=== PATIENT | male | born 1990 | race Asian ===

== ENCOUNTER 2022-10-09 01:47 | Emergency (ER) | payer OTHER ==
[2022-10-09] MEDS ORDERED: DOXYCYCLINE 100 MG TABLET PO STA (03:22)
[2022-10-09] MEDS ORDERED: HYDROcod/ACET 5/325 Prepack 4 PO STA (03:22)
--- NOTE | 2022-10-09 03:25 | ED Physician Documentation ---
PD HPI SKIN - Stated complaint Stated Complaint: COCCYX PAIN - Chief complaint Chief Complaint: Wound - History obtained from History obtained from: Patient - Additional information Additional information: The patient comes to the emergency department with chief complaint of right buttock pain and swelling progressively over the last several days and Also, right small finger pain after falling and landing on his right hand and catching his right small finger. Patient states both of these events happened several days ago. The patient states that he has had some swelling about the PIP joint of mentioned finger and that has been painful. However, he has been able to move it. He states the thing that is bothering him the most is the increasing area of pain and swelling on his buttock and that it is interfering with his ability to even move around at work. It also hurts to sit down, he states. Patient denies fevers or chills. No drainage from the area. He has never had an abscess before. 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 - Past Surgical History Past Surgical History: No - Present Medications Home Medications: Ambulatory Orders Medication Instructions Recorded Confirmed Bictegrav/Emtricit/Tenofov Ala 1 tab PO DAILY 10/09/22 10/09/22 [Biktarvy 50-200-25 mg Tablet] Doxycycline [Vibramycin] 100 mg PO BID #14 tablet 10/09/22 HYDROcod/ACETAM 5/325 [[place]avend[place] 5/325] 1 - 2 tablet PO Q6H PRN #14 tablet 10/09/22 Isoniazid 300 mg PO DAILY 10/09/22 10/09/22 Pyridoxine HCl (Vitamin B6) 50 mg PO DAILY 10/09/22 10/09/22 [Vitamin B-6] - Allergies Allergies/Adverse Reactions: Allergies Allergy/AdvReac Type Severity Reaction Status Date / Time No Known Drug Allergies Allergy Verified 10/09/22 01:58 - Social History Does the pt smoke?: No Smoking Status: Never smoker Does the pt drink ETOH?: Yes ETOH Use: Wine, Liquor Does the pt have substance abuse?: No - Immunizations Immunizations are current?: Yes - POLST Patient has POLST: No PD ED PE NORMAL - Vitals Vital signs reviewed: Yes - General General: Alert and oriented X 3, No acute distress, Well developed/nourished - HEENT HEENT: Atraumatic, PERRL, EOMI, Moist mucous membranes - Neck Neck: Supple, no meningeal sign - Respiratory Respiratory: No respiratory distress - Derm Derm: Warm and dry, Other (5 cm or erythema with 4 cm centrally located area of induration with scab overlying. No drainage. No fluctuance. Tender to palpation.) - Extremities Extremities: No deformity, Other (Edema and notable tenderness about the PIP joint of the right hand fifth digit. Mildly limited range of motion with regard to flexion, secondary to pain.) - Neuro Neuro: Alert and oriented X 3 - Psych Psych: Normal mood, Normal affect Results - Vitals Vitals: Vital Signs - 24 hr 10/09/22 01:52 Temperature 37.1 C Heart Rate 95 Respiratory 16 Rate Blood Pressure 146/97 H O2 Saturation 100 Oxygen O2 Source Room air - Rads (name of study) Right hand x-ray series Relevant Findings:: Final report received, See rad report (Negative) Procedures - Abscess I&D (location) R buttock Preparation: Betadine, Lidocaine 1% Incision: Incised with scalpel, Purulent drainage, Irrigated, Packed Other: Pt tolerated well, Dressing applied, Antibiotic prescribed PD Medical Decision Making - ED course Complexity details: considered differential, d/w patient ED course: X-ray was performed of the patient's right hand and no fracture was found. I&D was performed as above with a modest amount of purulent drainage. The patient was started on doxycycline based on a recent antibiotic susceptibility patterns for Staph aureus/MRSA. He was given a prepack of Vicodin as he had driven himself., And was instructed to wait to take this until he got home. At his request, I have electronically transmitted his prescriptions to the [facility] pharmacy in [place]. We have discussed the need for follow-up in 2 to 4 days for packing removal. We have also discussed wound care at home and the usual indications for return. Departure - Departure Disposition: 01 Home, Self Care Clinical Impression: Abscess Condition: Stable Instructions: ED Abscess IandD Prescriptions: HYDROcod/ACETAM 5/325 [Cavendish 5/325] 1 - 2 tablet PO Q6H PRN #14 tablet PRN Reason: Pain Doxycycline [Vibramycin] 100 mg PO BID #14 tablet Comments: You have an abscess with cellulitis on your right buttock which has been incised and drained today. The abscess cavity has been packed with gauze packing, which should be left in place for at least the next 2 days. In 2 to 4 days, you should have the packing removed and at that point in time, the abscess may be allowed to heal on its own without further packing placement. You been started on antibiotics tonight, and will need to order picker/assembler your prescription for the remaining antibiotics. Given that it is still fairly early in the morning, you may take your next dose of antibiotics sometime in the midmorning and then you can get on the twice daily schedule with the following dose in the late afternoo n to evening. The prescription for the antibiotic, as well as a prescription for some pain medication has been electronically transmitted [place] [facility] [place]. As far as the incision site, as long as the gauze packing is in place, the wound should be kept dry as far as possible. If you do happen accidentally get the dressing wet, you should change the gauze. Once the packing is removed and the wound scabs over, you may leave it open to air if you wish. Otherwise, you may place a Band-Aid or small dressing over the area. Forms: Activity restrictions
[2022-10-09 03:44] VITALS: BP 138/66
--- NOTE | 2022-10-09 08:36 | XRAY Report ---
PROCEDURE: Hand 3 View RT INDICATIONS: fall/5th digit injury TECHNIQUE: 3 views of the hand(s) acquired. COMPARISON: None. FINDINGS: Bones: No fractures or dislocations. No suspicious bony lesions. Soft tissues: No suspicious soft tissue calcifications. IMPRESSION: No acute bony abnormality. If symptoms persist, follow-up radiographs and/or CT or MRI may be helpful for further evaluation. Findings are concordant with preliminary interpretation provided by [facility]. Reviewed by: Kiran Cuello MD on 10/09/2022 8:35 AM PDT Approved by: Kiran Cuello MD on 10/09/2022 8:35 AM PDT Station ID: [id number]
== END 2022-10-09 03:46 | disposition home or self-care (01) ==
LOC: ED 01:47
DX: L02.31 Cutaneous abscess of buttock (principal)
CPT/HCPCS: 10060; 73130; 99282; 99283; A9270

== ENCOUNTER 2022-10-10 23:04 | Emergency (ER) | payer OTHER ==
--- NOTE | 2022-10-11 02:58 | ED Physician Documentation ---
PD HPI SKIN - Stated complaint Stated Complaint: NEED WOUND REDRESS - Chief complaint Chief Complaint: Wound - History obtained from History obtained from: Patient - Additional information Additional information: HPI from patient. Patient had right gluteal abscess I+D in this ED 2 days ago. He removed the packing but was under the impression the packing was to be replaced and he presents at this time for packing replacement. Review of Systems Constitutional: denies: Fever PD PAST MEDICAL HISTORY - Past Medical History Past Medical History: No - Past Surgical History Past Surgical History: No - Present Medications Home Medications: Ambulatory Orders Medication Instructions Recorded Confirmed Bictegrav/Emtricit/Tenofov Ala 1 tab PO DAILY 10/09/22 10/11/22 [Biktarvy 50-200-25 mg Tablet] Doxycycline [Vibramycin] 100 mg PO BID #14 tablet 10/09/22 10/11/22 HYDROcod/ACETAM 5/325 [[place] 5/325] 1 - 2 tablet PO Q6H PRN #14 tablet 10/09/22 10/11/22 Isoniazid 300 mg PO DAILY 10/09/22 10/11/22 Pyridoxine HCl (Vitamin B6) 50 mg PO DAILY 10/09/22 10/11/22 [Vitamin B-6] - Allergies Allergies/Adverse Reactions: Allergies Allergy/AdvReac Type Severity Reaction Status Date / Time No Known Drug Allergies Allergy Verified 10/10/22 23:19 - Social History Does the pt smoke?: No Smoking Status: Never smoker Does the pt drink ETOH?: Yes Does the pt have substance abuse?: No - Immunizations Immunizations are current?: Yes - POLST Patient has POLST: No PD ED PE NORMAL - Vitals Vital signs reviewed: Yes - General General: Alert and oriented X 3, No acute distress, Well developed/nourished PD ED PE EXPANDED - Free text exam Free text exam: right gluteal abscess I+D site: flat, confluent erythema surrounding incision site. No fluctuance nor discharge. There is tenderness to palpation and area of induration adjacent to the incision site. Results - Vitals Vitals: Oxygen O2 Source Room air PD Medical Decision Making - ED course Complexity details: considered differential, d/w patient ED course: abscess check after I+D. No fluctuance nor discharge but area of firmness/induration adjacent to incision site and thus given 1gram IM rocephin; instructed to continue the prescribed antibiotic (doxycycline) as previously prescribed. Previous ED MD note reviewed (from encounter 2 days ago), indicates packing can be removed but does not need to be replaced. Patient indicates he has removed the packing already. I explained that the packing did not need to be replaced and that the incision site will slowly heal on its own at this point. Departure - Departure Disposition: 01 Home, Self Care Clinical Impression: Abscess Condition: Good Instructions: ED Abscess IandD Comments: Continue the antibiotic (doxycycline) as previously prescribed. You are also given a shot of a different antibiotic (ceftriaxone) to help further fight off the bacteria that caused this abscess. Discharge Date/Time: 10/11/22 03:51
[2022-10-11] MEDS ORDERED: cefTRIAXone 1 GM VIAL IM STA (03:09)
[2022-10-11] MEDS ORDERED: LIDOCAINE 1% 2 ML VIAL MC ONE (03:09)
[2022-10-11 03:51] VITALS: BP 110/58
== END 2022-10-11 03:51 | disposition home or self-care (01) ==
LOC: ED 23:04
DX: Z48.00 Encounter for change or removal of nonsurgical wound dressing (principal); L02.31 Cutaneous abscess of buttock
CPT/HCPCS: 96372; 99282; 99283